=== PATIENT | male | born 1960 | race Caucasian/White ===

== ENCOUNTER 2017-09-25 17:04 | Inpatient (IN) | payer OTHER ==
[~2017-09-25] VITALS: Ht 177.8 cm; Wt 132.4 kg
[2017-09-25] MEDS ORDERED: SODIUM CHLORIDE 0.9% 1,000ML IVBOLUS ONE (17:30)
[2017-09-25] MEDS ORDERED: SODIUM CHLORIDE FLUSH 10ML SYR IVF ONE (17:30)
[2017-09-25] MEDS ORDERED: ALBUTEROL/IPRATROPIUM 2.5MG/0.5MG, 3 ML NEB ONE (18:00)
[2017-09-25] MEDS ORDERED: ALBUTEROL SULFATE 2.5 MG/3 ML NPPB ONE (18:00)
[2017-09-25 18:20] LABS: MEAN CORPUSCULAR HEMOGLOBIN 30.4 pg (27.5-34.5); MEAN CORPUSCULAR HGB CONC 32.2 g/dL (33.2-36.2); MEAN CORPUSCULAR VOLUME 94.4 fL (81-97); MEAN PLATELET VOLUME 8.2 fL (7.4-10.4); PLATELET COUNT 186 x10^3/uL (130-400); RED BLOOD COUNT 5.58 x10^6/uL (4.38-5.82)
[2017-09-25 18:32] LABS: ALBUMIN 2.9 g/dL (3.4-5.0); ANION GAP 4 mmol/L (5-15); CALCIUM 8.1 mg/dL (8.5-10.1); CHLORIDE 104 mmol/L (98-107)
[2017-09-25 18:40] LABS: ALANINE AMINOTRANSFERASE 63 U/L (12-78); ALKALINE PHOSPHATASE 72 U/L (45-117); BILIRUBIN,TOTAL 0.5 mg/dL (0.2-1.0); CREATININE 1.65 mg/dL (0.7-1.3); TOTAL PROTEIN 6.8 g/dL (6.4-8.2)
[2017-09-25 18:44] LABS: MD YES
[2017-09-25 19:04] LABS: EOS% (MANUAL) 1 % (1-7); LYMPH#(MANUAL) 1.94 x10^3/uL (1-3.4); LYMPHS% (MANUAL) 19 % (22-44); MONOS#(MANUAL) 0.92 x10^3/uL (0.3-2.7); MONOS% (MANUAL) 9 % (2-9); REACTIVE LYMPHS % (MANUAL) 2 % (0-0); SEG#(MANUAL) 7.04 x10^3/uL (1.8-6.8); SEGS% (MANUAL) 69 % (42-75)
[2017-09-25 19:06] LABS: POLYCHROMASIA 1+
[2017-09-25 19:08] LABS: <PLATELET ESTIMATE> ADEQUATE; <PLT MORPHOLOGY> NORMAL PLT MORPH
[2017-09-25] MEDS ORDERED: ALBUTEROL/IPRATROPIUM 2.5MG/0.5MG, 3 ML ONE (19:16)
[2017-09-25] MEDS ORDERED: ALBUTEROL SULFATE 2.5 MG/3 ML ONE (19:31)
[2017-09-25 19:38] LABS: RED CELL DISTRIBUTION WIDTH 15.9 % (9.4-14.8)
[2017-09-25] MEDS ORDERED: CEFTRIAXONE PMX 1GM/50ML 50 ML IV ONE (20:30)
[2017-09-25] MEDS ORDERED: CEFTRIAXONE PMX 1GM/50ML 50 ML ONE (20:30)
[2017-09-25] MEDS ORDERED: AZITHROMYCIN 500 MG in SODIUM CHLORIDE 0.9% 250 ML IV ONE (20:30)
[2017-09-25] MEDS ORDERED: ATOR10TA9 PO (20:57)
[2017-09-25] MEDS ORDERED: ZOLP-413 PO (20:57)
[2017-09-25] MEDS ORDERED: ALBU1.25 NEB (20:57)
[2017-09-25] MEDS ORDERED: ASPI-515 PO (20:57)
[2017-09-25] MEDS ORDERED: VALS40TA2 PO (20:57)
[2017-09-25] MEDS ORDERED: ENALAPRILAT 1.25 MG/ML, 2ML IVPush PRN (21:30)
[2017-09-25] MEDS ORDERED: ACETAMINOPHEN 325 MG TABLET PO PRN (21:30)
[2017-09-25] MEDS ORDERED: GUAIFENESIN/DM 200-20MG, 10ML UDC PO PRN (21:30)
[2017-09-25] MEDS ORDERED: DOCUSATE 100 MG CAPSULE PO PRN (21:30)
[2017-09-25 22:03] VITALS: BP 108/67
[2017-09-25] MEDS ORDERED: FUROSEMIDE 20 MG/2 ML IV ONE (22:30)
[2017-09-25] MEDS: GUAIFENESIN ER 600 MG TABLET PO SCH (23:02)
[2017-09-25] MEDS: NICOTINE 21 MG/24 HR PATCH.TD24 TD SCH ×2 (23:02→23:05)
[2017-09-25] MEDS: ENOXAPARIN 40 MG/0.4 ML SQ SCH (23:02)
[2017-09-25] MEDS: ZOLPIDEM 10MG TABLET PO SCH (23:13)
[2017-09-25] MEDS: AZITHROMYCIN 500 MG in SODIUM CHLORIDE 0.9% 250 ML IV SCH (23:40)
[2017-09-26 01:54] VITALS: BP 104/55
[2017-09-26 07:54] VITALS: BP 116/63
[2017-09-26] MEDS: GUAIFENESIN ER 600 MG TABLET PO SCH ×2 (08:40→20:39)
[2017-09-26] MEDS: CEFTRIAXONE PMX 1GM/50ML 50 ML IV SCH ×2 (08:40→20:37)
[2017-09-26] MEDS ORDERED: ASPIRIN 81 MG TABLET EC PO SCH (09:00)
[2017-09-26] MEDS ORDERED: ALBUTEROL/IPRATROPIUM 2.5MG/0.5MG, 3 ML ONE (09:26)
[2017-09-26] MEDS: methylPREDNISolone SOD SUCC 125 MG/2 ML IV SCH ×2 (09:49→18:16)
[2017-09-26] MEDS: ALBUTEROL/IPRATROPIUM 2.5MG/0.5MG, 3 ML NPPB SCH ×3 (09:55→20:15)
[2017-09-26] MEDS ORDERED: ALBUTEROL/IPRATROPIUM 2.5MG/0.5MG, 3 ML NPPB PRN (10:00)
[2017-09-26 14:30] VITALS: BP 114/65
[2017-09-26 19:52] VITALS: BP 110/74
[2017-09-26] MEDS: ZOLPIDEM 10MG TABLET PO SCH (20:39)
[2017-09-26] MEDS: ENOXAPARIN 40 MG/0.4 ML SQ SCH (20:40)
[2017-09-26] MEDS: NICOTINE 21 MG/24 HR PATCH.TD24 TD SCH (20:40)
[2017-09-26] MEDS: AZITHROMYCIN 500 MG in SODIUM CHLORIDE 0.9% 250 ML IV SCH (21:16)
[2017-09-27] MEDS: methylPREDNISolone SOD SUCC 125 MG/2 ML IV SCH (02:15)
[2017-09-27 02:58] VITALS: BP 127/88
[2017-09-27] MEDS ORDERED: NOREPINEPHRINE 1 MG/ML, 4ML ONE (04:23)
[2017-09-27 04:24] LABS: ALANINE AMINOTRANSFERASE 80 U/L (12-78); ALBUMIN 3.2 g/dL (3.4-5.0); ANION GAP 6 mmol/L (5-15); CALCIUM 7.8 mg/dL (8.5-10.1); CHLORIDE 99 mmol/L (98-107); CREATININE 2.48 mg/dL (0.7-1.3)
[2017-09-27 04:26] LABS: ALKALINE PHOSPHATASE 88 U/L (45-117); BILIRUBIN,TOTAL 0.3 mg/dL (0.2-1.0); TOTAL PROTEIN 7.7 g/dL (6.4-8.2)
[2017-09-27] MEDS ORDERED: SODIUM BICARB 8.4%, 50ML SYRINGE ONE (04:29)
[2017-09-27] MEDS ORDERED: CODE BLUE RESPONSE XX ONE (04:29)
[2017-09-27] MEDS ORDERED: SUCCINYLCHOLINE 20 MG/ML, 10ML ONE (04:29)
[2017-09-27] MEDS ORDERED: ETOMIDATE 20 MG/10 ML ONE (04:29)
[2017-09-27] MEDS ORDERED: SODIUM CHLORIDE 0.9% 1,000ML IVBOLUS ONE ×2 (04:30→05:00)
[2017-09-27 04:31] LABS: MEAN CORPUSCULAR HEMOGLOBIN 30.1 pg (27.5-34.5); MEAN CORPUSCULAR HGB CONC 30.7 g/dL (33.2-36.2); MEAN CORPUSCULAR VOLUME 98.3 fL (81-97); MEAN PLATELET VOLUME 8.6 fL (7.4-10.4); PLATELET COUNT 179 x10^3/uL (130-400); RED BLOOD COUNT 5.66 x10^6/uL (4.38-5.82); RED CELL DISTRIBUTION WIDTH 16.4 % (9.4-14.8)
[2017-09-27 04:54] LABS: MD YES
[2017-09-27 04:56] LABS: BAND#(MANUAL) 0.18 x10^3/uL; BANDS%(MANUAL) 1 % (0-7); LYMPH#(MANUAL) 2.12 x10^3/uL (1-3.4); LYMPHS% (MANUAL) 12 % (22-44); MONOS#(MANUAL) 0.53 x10^3/uL (0.3-2.7); MONOS% (MANUAL) 3 % (2-9); REACTIVE LYMPHS # (MANUAL) 0.71 x10^3/uL (0-0); REACTIVE LYMPHS % (MANUAL) 4 % (0-0); SEG#(MANUAL) 14.16 x10^3/uL (1.8-6.8); SEGS% (MANUAL) 80 % (42-75)
[2017-09-27] MEDS: NOREPINEPHRINE 4 MG in SODIUM CHLORIDE 0.9% 246 ML IV PRN ×4 (04:56→15:41)
[2017-09-27 04:57] LABS: <PLATELET ESTIMATE> ADEQUATE; <PLT MORPHOLOGY> NORMAL PLT MORPH; POLYCHROMASIA 1+
[2017-09-27] MEDS ORDERED: PROPOFOL 100 ML IV ONE (04:58)
[2017-09-27] MEDS ORDERED: NOREPINEPHRINE 4 MG in SODIUM CHLORIDE 0.9% 246 ML IV PRN (05:00)
[2017-09-27] MEDS: ALBUTEROL/IPRATROPIUM 2.5MG/0.5MG, 3 ML NPPB SCH ×5 (05:29→20:00)
[2017-09-27] MEDS ORDERED: VECURONIUM 10 MG ONE (06:20)
[2017-09-27] MEDS ORDERED: FENTANYL PF 100 MCG/2ML ONE (06:27)
[2017-09-27] MEDS: ALBUTEROL/IPRATROPIUM 2.5MG/0.5MG, 3 ML INLINE SCH ×5 (06:46→23:00)
[2017-09-27] MEDS ORDERED: FAMOTIDINE 20 MG/2 ML IV SCH (07:00)
[2017-09-27] MEDS ORDERED: FENTANYL PF 100 MCG/2ML IVPush ONE (07:00)
[2017-09-27] MEDS ORDERED: PHARMACY MAY ADJ FOR RENAL FX MC SCH (07:00)
[2017-09-27] MEDS ORDERED: LACTULOSE 20 GM/30 ML UDC NG PRN (07:00)
[2017-09-27] MEDS ORDERED: BISACODYL 10 MG SUPP PR PRN (07:00)
[2017-09-27] MEDS ORDERED: SENNA/DOCUSATE TABLET NG PRN (07:00)
[2017-09-27] MEDS ORDERED: SODIUM CHLORIDE 0.9% 1,000 ML IV SCH (07:00)
[2017-09-27] MEDS ORDERED: LIDOCAINE-MPF 1%, 2ML ENDO PRN (07:00)
[2017-09-27] MEDS ORDERED: AZITHROMYCIN 500 MG in SODIUM CHLORIDE 0.9% 250 ML IV SCH (07:00)
[2017-09-27] MEDS ORDERED: SENNOSIDES 8.8 MG/5 ML ORAL SOL NG PRN (07:00)
[2017-09-27] MEDS: PROPOFOL 100 ML IV PRN ×6 (07:53→23:02)
[2017-09-27] MEDS: METRONIDAZOLE PMX 500MG/100ML 100 ML IV SCH ×3 (08:12→21:15)
[2017-09-27] MEDS: GUAIFENESIN ER 600 MG TABLET PO SCH ×2 (09:00→21:15)
[2017-09-27] MEDS ORDERED: VECURONIUM 10 MG IVPush ONE (09:30)
[2017-09-27] MEDS ORDERED: ASPIRIN 81 MG TABLET CHEW ONE (09:35)
[2017-09-27] MEDS: CEFTRIAXONE PMX 2GM/50ML 50 ML IV SCH (09:38)
[2017-09-27] MEDS: methylPREDNISolone SOD SUCC 40 MG/ML IV SCH ×3 (09:39→19:52)
[2017-09-27] MEDS: ASPIRIN 81 MG TABLET CHEW PO SCH (09:39)
[2017-09-27] MEDS ORDERED: MIDAZOLAM 1 MG/ML, 5ML ONE (11:10)
[2017-09-27] MEDS ORDERED: MIDAZOLAM 1 MG/ML, 5ML IVPush ONE (11:30)
[2017-09-27 13:48] LABS: MICROSCOPIC INDICATED
[2017-09-27 13:50] LABS: CULTURE INDICATED? YES
[2017-09-27] MEDS ORDERED: EPINEPHRINE SYRINGE 0.1 MG/ML, 10ML ONE (14:00)
[2017-09-27] MEDS: ZOLPIDEM 10MG TABLET PO SCH (20:34)
[2017-09-27] MEDS: ENOXAPARIN 40 MG/0.4 ML SQ SCH (21:15)
[2017-09-27] MEDS: FAMOTIDINE 20 MG/2 ML IV SCH (21:15)
[2017-09-27] MEDS: NICOTINE 21 MG/24 HR PATCH.TD24 TD SCH (21:16)
[2017-09-28] MEDS: PROPOFOL 100 ML IV PRN ×5 (01:48→19:43)
[2017-09-28] MEDS: METRONIDAZOLE PMX 500MG/100ML 100 ML IV SCH ×4 (02:24→21:16)
[2017-09-28] MEDS: methylPREDNISolone SOD SUCC 40 MG/ML IV SCH ×4 (02:24→19:46)
[2017-09-28] MEDS: ALBUTEROL/IPRATROPIUM 2.5MG/0.5MG, 3 ML INLINE SCH ×6 (03:00→22:45)
[2017-09-28 04:01] LABS: ALANINE AMINOTRANSFERASE 55 U/L (12-78); ALBUMIN 2.4 g/dL (3.4-5.0); ANION GAP 5 mmol/L (5-15); CALCIUM 7.5 mg/dL (8.5-10.1); CHLORIDE 106 mmol/L (98-107); CREATININE 1.81 mg/dL (0.7-1.3)
[2017-09-28 04:03] LABS: ALKALINE PHOSPHATASE 53 U/L (45-117); BILIRUBIN,TOTAL 0.4 mg/dL (0.2-1.0); TOTAL PROTEIN 5.5 g/dL (6.4-8.2)
[2017-09-28 04:06] LABS: MEAN CORPUSCULAR HEMOGLOBIN 29.8 pg (27.5-34.5); MEAN CORPUSCULAR HGB CONC 32.3 g/dL (33.2-36.2); MEAN CORPUSCULAR VOLUME 92.3 fL (81-97); MEAN PLATELET VOLUME 8.5 fL (7.4-10.4); PLATELET COUNT 160 x10^3/uL (130-400); RED BLOOD COUNT 5.13 x10^6/uL (4.38-5.82); RED CELL DISTRIBUTION WIDTH 15.4 % (9.4-14.8)
[2017-09-28] MEDS: FENTANYL PF 100 MCG/2ML IVPush PRN ×2 (04:20→08:46)
[2017-09-28 04:27] LABS: MD YES
[2017-09-28 04:29] LABS: BAND#(MANUAL) 0.35 x10^3/uL; BANDS%(MANUAL) 2 % (0-7); LYMPH#(MANUAL) 2.12 x10^3/uL (1-3.4); LYMPHS% (MANUAL) 12 % (22-44); MICROCYTOSIS 1+; MONOS#(MANUAL) 1.24 x10^3/uL (0.3-2.7); MONOS% (MANUAL) 7 % (2-9); POLYCHROMASIA 1+; SEG#(MANUAL) 13.98 x10^3/uL (1.8-6.8); SEGS% (MANUAL) 79 % (42-75)
[2017-09-28 04:30] LABS: <PLATELET ESTIMATE> ADEQUATE; <PLT MORPHOLOGY> NORMAL PLT MORPH
[2017-09-28] MEDS: CEFTRIAXONE PMX 2GM/50ML 50 ML IV SCH (06:09)
[2017-09-28] MEDS: ASPIRIN 81 MG TABLET CHEW PO SCH (08:47)
[2017-09-28] MEDS: GUAIFENESIN ER 600 MG TABLET PO SCH (08:55)
[2017-09-28] MEDS: GUAIFENESIN 100 MG/5 ML, 10ML UDC PO SCH ×2 (09:00→22:14)
[2017-09-28 14:49] LABS: TROPONIN I 0.309 ng/mL (0.000-0.045)
[2017-09-28 18:52] LABS: TROPONIN I 0.236 ng/mL (0.000-0.045)
[2017-09-28] MEDS: ZOLPIDEM 10MG TABLET PO SCH (21:00)
[2017-09-28] MEDS: ENOXAPARIN 40 MG/0.4 ML SQ SCH (21:15)
[2017-09-28] MEDS: NICOTINE 21 MG/24 HR PATCH.TD24 TD SCH (21:15)
[2017-09-28] MEDS: FAMOTIDINE 20 MG/2 ML IV SCH (21:16)
[2017-09-29] MEDS: PROPOFOL 100 ML IV PRN ×8 (00:41→23:39)
[2017-09-29] MEDS: methylPREDNISolone SOD SUCC 40 MG/ML IV SCH ×4 (01:45→19:40)
[2017-09-29] MEDS: METRONIDAZOLE PMX 500MG/100ML 100 ML IV SCH ×4 (02:49→20:51)
[2017-09-29] MEDS: ALBUTEROL/IPRATROPIUM 2.5MG/0.5MG, 3 ML INLINE SCH ×6 (03:10→23:00)
[2017-09-29 04:30] LABS: BASOPHILS # (AUTO) 0.05 x10^3/uL (0-0.1); BASOPHILS % (AUTO) 0 % (0-1); EOSINOPHILS % (AUTO) 0 % (1-7); LYMPHOCYTES # (AUTO) 0.52 x10^3/uL (1-3.4); LYMPHOCYTES % (AUTO) 3 % (22-44); MD NO; MEAN CORPUSCULAR HEMOGLOBIN 30.1 pg (27.5-34.5); MEAN CORPUSCULAR HGB CONC 32.6 g/dL (33.2-36.2); MEAN CORPUSCULAR VOLUME 92.4 fL (81-97); MEAN PLATELET VOLUME 8.6 fL (7.4-10.4); MONOCYTES # (AUTO) 0.56 x10^3/uL (0.2-0.8); MONOCYTES % (AUTO) 4 % (2-9); NEUTROPHILS % (AUTO) 93 % (42-75); PLATELET COUNT 153 x10^3/uL (130-400); RED BLOOD COUNT 5.06 x10^6/uL (4.38-5.82)
[2017-09-29 04:41] LABS: ANION GAP 5 mmol/L (5-15); CHLORIDE 107 mmol/L (98-107)
[2017-09-29 04:43] LABS: CALCIUM 7.7 mg/dL (8.5-10.1); CREATININE 1.35 mg/dL (0.7-1.3)
[2017-09-29] MEDS: CEFTRIAXONE PMX 2GM/50ML 50 ML IV SCH (06:14)
[2017-09-29] MEDS: ASPIRIN 81 MG TABLET CHEW PO SCH (08:49)
[2017-09-29] MEDS: FENTANYL PF 100 MCG/2ML IVPush PRN ×2 (08:49→13:48)
[2017-09-29] MEDS: GUAIFENESIN 100 MG/5 ML, 10ML UDC PO SCH ×2 (08:50→20:52)
[2017-09-29] MEDS: ZOLPIDEM 10MG TABLET PO SCH (20:22)
[2017-09-29] MEDS: ENOXAPARIN 40 MG/0.4 ML SQ SCH (20:52)
[2017-09-29] MEDS: FAMOTIDINE 20 MG/2 ML IV SCH (20:52)
[2017-09-29] MEDS: NICOTINE 21 MG/24 HR PATCH.TD24 TD SCH (20:53)
[2017-09-30] MEDS: methylPREDNISolone SOD SUCC 40 MG/ML IV SCH ×4 (02:26→20:53)
[2017-09-30] MEDS: METRONIDAZOLE PMX 500MG/100ML 100 ML IV SCH ×4 (02:26→22:08)
[2017-09-30] MEDS: PROPOFOL 100 ML IV PRN ×8 (02:27→21:55)
[2017-09-30] MEDS: ALBUTEROL/IPRATROPIUM 2.5MG/0.5MG, 3 ML INLINE SCH ×6 (03:00→22:14)
[2017-09-30 04:56] LABS: MEAN CORPUSCULAR HEMOGLOBIN 30.1 pg (27.5-34.5); MEAN CORPUSCULAR HGB CONC 32.7 g/dL (33.2-36.2); MEAN PLATELET VOLUME 8.8 fL (7.4-10.4); PLATELET COUNT 155 x10^3/uL (130-400); RED CELL DISTRIBUTION WIDTH 15.9 % (9.4-14.8)
[2017-09-30 05:05] LABS: ANION GAP 4 mmol/L (5-15); CHLORIDE 107 mmol/L (98-107)
[2017-09-30 05:06] LABS: CREATININE 1.29 mg/dL (0.7-1.3); TRIGLYCERIDES 114 mg/dL (50-200)
[2017-09-30 05:43] LABS: BASOPHILS # (AUTO) 0.01 x10^3/uL (0-0.1); BASOPHILS % (AUTO) 0 % (0-1); EOSINOPHILS % (AUTO) 0 % (1-7); LYMPHOCYTES % (AUTO) 2 % (22-44); MD SCAN; MONOCYTES # (AUTO) 0.42 x10^3/uL (0.2-0.8); MONOCYTES % (AUTO) 3 % (2-9); NEUTROPHILS % (AUTO) 95 % (42-75)
[2017-09-30] MEDS: CEFTRIAXONE PMX 2GM/50ML 50 ML IV SCH (06:12)
[2017-09-30] MEDS: ASPIRIN 81 MG TABLET CHEW PO SCH (07:24)
[2017-09-30] MEDS: GUAIFENESIN 100 MG/5 ML, 10ML UDC PO SCH ×2 (07:24→20:53)
[2017-09-30] MEDS ORDERED: HEPARIN 25,000 UNITS/500ML PMX 500 ML IV PRN (08:30)
[2017-09-30] MEDS ORDERED: HEPARIN 5,000 UNITS/ML, 1ML IV ONE ×2 (08:30→09:00)
[2017-09-30] MEDS ORDERED: HEPARIN 5,000 UNITS/ML, 1ML IV PRN (08:30)
[2017-09-30] MEDS: HEPARIN 25,000 UNITS/500ML PMX 500 ML IV PRN (09:09)
[2017-09-30] MEDS: ZOLPIDEM 10MG TABLET PO SCH (20:37)
[2017-09-30] MEDS: NICOTINE 21 MG/24 HR PATCH.TD24 TD SCH (20:53)
[2017-09-30] MEDS: FAMOTIDINE 20 MG/2 ML IV SCH (20:53)
[2017-10-01] MEDS ORDERED: FUROSEMIDE 20 MG/2 ML IV ONE
[2017-10-01] MEDS: PROPOFOL 100 ML IV PRN ×10 (00:13→23:36)
[2017-10-01] MEDS: methylPREDNISolone SOD SUCC 40 MG/ML IV SCH ×4 (01:23→20:50)
[2017-10-01] MEDS: ALBUTEROL/IPRATROPIUM 2.5MG/0.5MG, 3 ML INLINE SCH ×6 (02:07→22:14)
[2017-10-01] MEDS: METRONIDAZOLE PMX 500MG/100ML 100 ML IV SCH ×4 (02:33→20:53)
[2017-10-01] MEDS: HEPARIN 25,000 UNITS/500ML PMX 500 ML IV PRN (04:14)
[2017-10-01 04:38] LABS: MEAN CORPUSCULAR HEMOGLOBIN 30.2 pg (27.5-34.5); MEAN CORPUSCULAR HGB CONC 32.5 g/dL (33.2-36.2); MEAN CORPUSCULAR VOLUME 92.9 fL (81-97); PLATELET COUNT 150 x10^3/uL (130-400); RED BLOOD COUNT 5.43 x10^6/uL (4.38-5.82); RED CELL DISTRIBUTION WIDTH 15.8 % (9.4-14.8)
[2017-10-01 04:45] LABS: ANION GAP 7 mmol/L (5-15); CALCIUM 7.9 mg/dL (8.5-10.1); CHLORIDE 107 mmol/L (98-107); CREATININE 1.32 mg/dL (0.7-1.3)
[2017-10-01] MEDS ORDERED: FUROSEMIDE 40 MG/4 ML IV ONE ×2 (05:00→17:00)
[2017-10-01 05:44] LABS: BASOPHILS # (AUTO) 0.02 x10^3/uL (0-0.1); BASOPHILS % (AUTO) 0 % (0-1); EOSINOPHILS % (AUTO) 0 % (1-7); LYMPHOCYTES # (AUTO) 0.37 x10^3/uL (1-3.4); LYMPHOCYTES % (AUTO) 2 % (22-44); MD SCAN; MONOCYTES # (AUTO) 0.52 x10^3/uL (0.2-0.8); MONOCYTES % (AUTO) 3 % (2-9); NEUTROPHILS % (AUTO) 95 % (42-75)
[2017-10-01 06:53] LABS: FIO2 100 %
[2017-10-01] MEDS: CEFTRIAXONE PMX 2GM/50ML 50 ML IV SCH (07:35)
[2017-10-01] MEDS: GUAIFENESIN 100 MG/5 ML, 10ML UDC PO SCH ×2 (08:48→20:50)
[2017-10-01] MEDS: FAMOTIDINE 20 MG/2 ML IV SCH ×2 (08:49→20:49)
[2017-10-01] MEDS: ASPIRIN 81 MG TABLET CHEW PO SCH (08:49)
[2017-10-01] MEDS: ZOLPIDEM 10MG TABLET PO SCH (20:50)
[2017-10-01] MEDS: NICOTINE 21 MG/24 HR PATCH.TD24 TD SCH (20:51)
[2017-10-02] MEDS: HEPARIN 25,000 UNITS/500ML PMX 500 ML IV PRN ×2 (00:55→21:31)
[2017-10-02] MEDS: methylPREDNISolone SOD SUCC 40 MG/ML IV SCH ×4 (02:35→20:34)
[2017-10-02] MEDS: METRONIDAZOLE PMX 500MG/100ML 100 ML IV SCH ×4 (02:35→20:57)
[2017-10-02] MEDS: ALBUTEROL/IPRATROPIUM 2.5MG/0.5MG, 3 ML INLINE SCH ×6 (03:21→22:22)
[2017-10-02 04:57] LABS: MEAN CORPUSCULAR HGB CONC 32.4 g/dL (33.2-36.2); MEAN CORPUSCULAR VOLUME 92.7 fL (81-97); MEAN PLATELET VOLUME 9.5 fL (7.4-10.4); PLATELET COUNT 146 x10^3/uL (130-400); RED BLOOD COUNT 5.54 x10^6/uL (4.38-5.82); RED CELL DISTRIBUTION WIDTH 16.1 % (9.4-14.8)
[2017-10-02 05:06] LABS: ANION GAP 7 mmol/L (5-15); CALCIUM 7.8 mg/dL (8.5-10.1); CHLORIDE 106 mmol/L (98-107); CREATININE 1.24 mg/dL (0.7-1.3)
[2017-10-02 05:40] LABS: BASOPHILS % (AUTO) 0 % (0-1); EOSINOPHILS % (AUTO) 0 % (1-7); LYMPHOCYTES # (AUTO) 0.29 x10^3/uL (1-3.4); LYMPHOCYTES % (AUTO) 2 % (22-44); MD SCAN; MONOCYTES # (AUTO) 0.51 x10^3/uL (0.2-0.8); MONOCYTES % (AUTO) 3 % (2-9); NEUTROPHILS # (AUTO) 16.61 x10^3/uL (1.8-6.8); NEUTROPHILS % (AUTO) 95 % (42-75)
[2017-10-02] MEDS: PROPOFOL 100 ML IV PRN ×7 (06:12→21:29)
[2017-10-02] MEDS: FAMOTIDINE 20 MG/2 ML IV SCH ×2 (08:52→20:56)
[2017-10-02] MEDS: CEFTRIAXONE PMX 2GM/50ML 50 ML IV SCH (08:52)
[2017-10-02] MEDS: ASPIRIN 81 MG TABLET CHEW PO SCH (08:52)
[2017-10-02] MEDS: GUAIFENESIN 100 MG/5 ML, 10ML UDC PO SCH ×2 (08:53→20:57)
[2017-10-02] MEDS: FUROSEMIDE 40 MG/4 ML IV SCH ×2 (08:53→20:56)
[2017-10-02] MEDS: ZOLPIDEM 10MG TABLET PO SCH (20:56)
[2017-10-02] MEDS: NICOTINE 21 MG/24 HR PATCH.TD24 TD SCH (21:29)
[2017-10-03] MEDS: PROPOFOL 100 ML IV PRN ×10 (00:06→22:28)
[2017-10-03] MEDS: ALBUTEROL/IPRATROPIUM 2.5MG/0.5MG, 3 ML INLINE SCH ×6 (02:40→22:47)
[2017-10-03] MEDS: methylPREDNISolone SOD SUCC 40 MG/ML IV SCH ×2 (02:58→08:03)
[2017-10-03] MEDS: METRONIDAZOLE PMX 500MG/100ML 100 ML IV SCH ×4 (02:58→21:22)
[2017-10-03] MEDS ORDERED: FUROSEMIDE 40 MG/4 ML IV ONE ×3 (03:00→23:59)
[2017-10-03 05:32] LABS: MEAN CORPUSCULAR HEMOGLOBIN 29.6 pg (27.5-34.5); MEAN CORPUSCULAR VOLUME 92.7 fL (81-97); MEAN PLATELET VOLUME 10.4 fL (7.4-10.4); PLATELET COUNT 122 x10^3/uL (130-400); RED BLOOD COUNT 5.64 x10^6/uL (4.38-5.82)
[2017-10-03 05:35] LABS: ANION GAP 8 mmol/L (5-15); CALCIUM 7.8 mg/dL (8.5-10.1); CHLORIDE 104 mmol/L (98-107)
[2017-10-03 05:37] LABS: CREATININE 1.34 mg/dL (0.7-1.3); TRIGLYCERIDES 103 mg/dL (50-200)
[2017-10-03 06:03] LABS: BASOPHILS % (AUTO) 0 % (0-1); EOSINOPHILS % (AUTO) 0 % (1-7); LYMPHOCYTES # (AUTO) 0.25 x10^3/uL (1-3.4); LYMPHOCYTES % (AUTO) 1 % (22-44); MD SCAN; MONOCYTES % (AUTO) 4 % (2-9); NEUTROPHILS # (AUTO) 19.26 x10^3/uL (1.8-6.8); NEUTROPHILS % (AUTO) 95 % (42-75)
[2017-10-03] MEDS: CEFTRIAXONE PMX 2GM/50ML 50 ML IV SCH (08:03)
[2017-10-03] MEDS: GUAIFENESIN 100 MG/5 ML, 10ML UDC PO SCH ×2 (08:18→21:22)
[2017-10-03] MEDS: FAMOTIDINE 20 MG/2 ML IV SCH ×2 (08:18→21:22)
[2017-10-03] MEDS: ASPIRIN 81 MG TABLET CHEW PO SCH (08:21)
[2017-10-03] MEDS: INSULIN ASPART 100 UNITS/ML, 3ML PEN MEDIUM DOSE SS SQ-INSULIN SCH ×3 (10:35→23:42)
[2017-10-03] MEDS: HEPARIN 25,000 UNITS/500ML PMX 500 ML IV PRN (17:17)
[2017-10-03] MEDS: methylPREDNISolone SOD SUCC 40 MG/ML IVPush SCH ×2 (17:17→23:44)
[2017-10-03] MEDS: ZOLPIDEM 10MG TABLET PO SCH (21:22)
[2017-10-03] MEDS: NICOTINE 21 MG/24 HR PATCH.TD24 TD SCH (21:22)
[2017-10-04] MEDS: ALBUTEROL/IPRATROPIUM 2.5MG/0.5MG, 3 ML INLINE SCH ×6 (02:29→23:00)
[2017-10-04] MEDS: PROPOFOL 100 ML IV PRN ×9 (02:57→23:05)
[2017-10-04] MEDS: METRONIDAZOLE PMX 500MG/100ML 100 ML IV SCH ×4 (02:57→21:47)
[2017-10-04 04:41] LABS: MEAN CORPUSCULAR HEMOGLOBIN 30.1 pg (27.5-34.5); MEAN CORPUSCULAR HGB CONC 32.6 g/dL (33.2-36.2); MEAN CORPUSCULAR VOLUME 92.3 fL (81-97); MEAN PLATELET VOLUME 10.4 fL (7.4-10.4); PLATELET COUNT 101 x10^3/uL (130-400); RED BLOOD COUNT 5.49 x10^6/uL (4.38-5.82); RED CELL DISTRIBUTION WIDTH 15.9 % (9.4-14.8)
[2017-10-04 04:49] LABS: ANION GAP 8 mmol/L (5-15); CALCIUM 7.9 mg/dL (8.5-10.1); CHLORIDE 106 mmol/L (98-107); CREATININE 1.35 mg/dL (0.7-1.3)
[2017-10-04] MEDS: INSULIN ASPART 100 UNITS/ML, 3ML PEN MEDIUM DOSE SS SQ-INSULIN SCH ×4 (05:18→21:47)
[2017-10-04 05:44] LABS: MD YES
[2017-10-04 05:45] LABS: MONOS#(MANUAL) 0.46 x10^3/uL (0.3-2.7); MONOS% (MANUAL) 2 % (2-9); SEG#(MANUAL) 22.54 x10^3/uL (1.8-6.8); SEGS% (MANUAL) 98 % (42-75)
[2017-10-04 05:46] LABS: <PLATELET ESTIMATE> DECREASED; <RBC MORPHOLOGY> NORMAL; LARGE PLATELETS 1+
[2017-10-04] MEDS: CEFTRIAXONE PMX 2GM/50ML 50 ML IV SCH (07:36)
[2017-10-04] MEDS: methylPREDNISolone SOD SUCC 40 MG/ML IVPush SCH ×2 (08:02→17:06)
[2017-10-04] MEDS: GUAIFENESIN 100 MG/5 ML, 10ML UDC PO SCH ×2 (08:03→20:47)
[2017-10-04] MEDS: ASPIRIN 81 MG TABLET CHEW PO SCH (08:03)
[2017-10-04] MEDS: FAMOTIDINE 20 MG/2 ML IV SCH ×2 (08:03→20:45)
[2017-10-04] MEDS: FUROSEMIDE 40 MG/4 ML IV SCH ×2 (08:45→20:44)
[2017-10-04] MEDS: HEPARIN 25,000 UNITS/500ML PMX 500 ML IV PRN (14:49)
[2017-10-04] MEDS: NICOTINE 21 MG/24 HR PATCH.TD24 TD SCH (20:43)
[2017-10-04] MEDS: ZOLPIDEM 10MG TABLET PO SCH (21:00)
[2017-10-05] MEDS: methylPREDNISolone SOD SUCC 40 MG/ML IVPush SCH (00:16)
[2017-10-05] MEDS: METRONIDAZOLE PMX 500MG/100ML 100 ML IV SCH ×4 (02:19→20:44)
[2017-10-05] MEDS: PROPOFOL 100 ML IV PRN ×6 (02:19→21:06)
[2017-10-05] MEDS: ALBUTEROL/IPRATROPIUM 2.5MG/0.5MG, 3 ML INLINE SCH ×6 (02:45→22:50)
[2017-10-05 03:53] LABS: MEAN CORPUSCULAR HEMOGLOBIN 29.9 pg (27.5-34.5); MEAN CORPUSCULAR HGB CONC 32.6 g/dL (33.2-36.2); MEAN CORPUSCULAR VOLUME 91.8 fL (81-97); MEAN PLATELET VOLUME 11.4 fL (7.4-10.4); PLATELET COUNT 108 x10^3/uL (130-400); RED BLOOD COUNT 5.58 x10^6/uL (4.38-5.82); RED CELL DISTRIBUTION WIDTH 16.1 % (9.4-14.8)
[2017-10-05 03:56] LABS: MD YES
[2017-10-05 04:02] LABS: ANION GAP 5 mmol/L (5-15); CALCIUM 8.2 mg/dL (8.5-10.1); CHLORIDE 107 mmol/L (98-107); CREATININE 1.38 mg/dL (0.7-1.3)
[2017-10-05 04:06] LABS: <PLATELET ESTIMATE> DECREASED; <RBC MORPHOLOGY> NORMAL; BAND#(MANUAL) 0.81 x10^3/uL; BANDS%(MANUAL) 3 % (0-7); LARGE PLATELETS 1+; LYMPH#(MANUAL) 0.54 x10^3/uL (1-3.4); LYMPHS% (MANUAL) 2 % (22-44); MONOS#(MANUAL) 0.54 x10^3/uL (0.3-2.7); MONOS% (MANUAL) 2 % (2-9); SEG#(MANUAL) 25.11 x10^3/uL (1.8-6.8); SEGS% (MANUAL) 93 % (42-75)
[2017-10-05] MEDS: INSULIN ASPART 100 UNITS/ML, 3ML PEN MEDIUM DOSE SS SQ-INSULIN SCH ×4 (05:05→20:53)
[2017-10-05] MEDS: CEFTRIAXONE PMX 2GM/50ML 50 ML IV SCH (06:51)
[2017-10-05] MEDS: HEPARIN 5,000 UNITS/ML, 1ML IV PRN (06:51)
[2017-10-05] MEDS: GUAIFENESIN 100 MG/5 ML, 10ML UDC PO SCH ×2 (09:11→20:55)
[2017-10-05] MEDS: FAMOTIDINE 20 MG/2 ML IV SCH ×2 (09:11→20:54)
[2017-10-05] MEDS: ASPIRIN 81 MG TABLET CHEW PO SCH (09:11)
[2017-10-05] MEDS: RISPERIDONE 1 MG/ML ORAL SOLN NG SCH ×2 (09:12→20:55)
[2017-10-05] MEDS: INSULIN DETEMIR 100 UNITS/ML, PEN SQ-INSULIN SCH ×2 (09:14→20:52)
[2017-10-05] MEDS: HEPARIN 25,000 UNITS/500ML PMX 500 ML IV PRN (11:44)
[2017-10-05] MEDS: FUROSEMIDE 40 MG/4 ML IV SCH (17:00)
[2017-10-05] MEDS: NICOTINE 21 MG/24 HR PATCH.TD24 TD SCH (20:54)
[2017-10-05] MEDS: ZOLPIDEM 10MG TABLET PO SCH (20:55)
[2017-10-06] MEDS: FENTANYL PF 100 MCG/2ML IVPush PRN ×2 (00:50→23:33)
[2017-10-06] MEDS: PROPOFOL 100 ML IV PRN ×7 (01:51→22:22)
[2017-10-06] MEDS: ALBUTEROL/IPRATROPIUM 2.5MG/0.5MG, 3 ML INLINE SCH ×6 (03:23→21:59)
[2017-10-06] MEDS: METRONIDAZOLE PMX 500MG/100ML 100 ML IV SCH ×4 (03:43→20:58)
[2017-10-06] MEDS: HEPARIN 25,000 UNITS/500ML PMX 500 ML IV PRN ×2 (03:56→21:39)
[2017-10-06] MEDS: INSULIN ASPART 100 UNITS/ML, 3ML PEN MEDIUM DOSE SS SQ-INSULIN SCH ×4 (04:49→21:02)
[2017-10-06 04:56] LABS: MEAN CORPUSCULAR HEMOGLOBIN 29.9 pg (27.5-34.5); MEAN CORPUSCULAR HGB CONC 32.6 g/dL (33.2-36.2); MEAN CORPUSCULAR VOLUME 91.7 fL (81-97); MEAN PLATELET VOLUME 12.2 fL (7.4-10.4); PLATELET COUNT 123 x10^3/uL (130-400); RED BLOOD COUNT 5.61 x10^6/uL (4.38-5.82); RED CELL DISTRIBUTION WIDTH 16.1 % (9.4-14.8)
[2017-10-06 04:57] LABS: ANION GAP 5 mmol/L (5-15); CALCIUM 8.7 mg/dL (8.5-10.1); CHLORIDE 110 mmol/L (98-107)
[2017-10-06 05:00] LABS: CREATININE 1.19 mg/dL (0.7-1.3); TRIGLYCERIDES 120 mg/dL (50-200)
[2017-10-06] MEDS: HEPARIN 5,000 UNITS/ML, 1ML IV PRN ×2 (05:13→17:54)
[2017-10-06 05:51] LABS: BASOPHILS # (AUTO) 0.07 x10^3/uL (0-0.1); BASOPHILS % (AUTO) 0 % (0-1); EOSINOPHILS # (AUTO) 0.09 x10^3/uL (0-0.4); EOSINOPHILS % (AUTO) 0 % (1-7); LYMPHOCYTES # (AUTO) 1.29 x10^3/uL (1-3.4); LYMPHOCYTES % (AUTO) 7 % (22-44); MD SCAN; MONOCYTES # (AUTO) 1.28 x10^3/uL (0.2-0.8); MONOCYTES % (AUTO) 7 % (2-9); NEUTROPHILS # (AUTO) 17.01 x10^3/uL (1.8-6.8); NEUTROPHILS % (AUTO) 86 % (42-75)
[2017-10-06] MEDS: CEFTRIAXONE PMX 2GM/50ML 50 ML IV SCH (06:43)
[2017-10-06] MEDS: RISPERIDONE 1 MG/ML ORAL SOLN NG SCH ×2 (09:11→20:58)
[2017-10-06] MEDS: FAMOTIDINE 20 MG/2 ML IV SCH ×2 (09:11→20:59)
[2017-10-06] MEDS: GUAIFENESIN 100 MG/5 ML, 10ML UDC PO SCH ×2 (09:11→20:59)
[2017-10-06] MEDS: ASPIRIN 81 MG TABLET CHEW PO SCH (09:11)
[2017-10-06] MEDS: FUROSEMIDE 40 MG/4 ML IV SCH (09:11)
[2017-10-06] MEDS: INSULIN DETEMIR 100 UNITS/ML, PEN SQ-INSULIN SCH ×2 (09:12→21:01)
[2017-10-06] MEDS: NICOTINE 21 MG/24 HR PATCH.TD24 TD SCH (20:59)
[2017-10-06] MEDS: ZOLPIDEM 10MG TABLET PO SCH (21:00)
[2017-10-07] MEDS: PROPOFOL 100 ML IV PRN ×8 (00:56→23:37)
[2017-10-07] MEDS: INSULIN ASPART 100 UNITS/ML, 3ML PEN MEDIUM DOSE SS SQ-INSULIN SCH ×2 (02:08→07:32)
[2017-10-07] MEDS: METRONIDAZOLE PMX 500MG/100ML 100 ML IV SCH (02:09)
[2017-10-07] MEDS: ALBUTEROL/IPRATROPIUM 2.5MG/0.5MG, 3 ML INLINE SCH ×6 (02:45→21:41)
[2017-10-07 03:48] LABS: BASOPHILS # (AUTO) 0.08 x10^3/uL (0-0.1); BASOPHILS % (AUTO) 1 % (0-1); EOSINOPHILS % (AUTO) 2 % (1-7); LYMPHOCYTES # (AUTO) 1.47 x10^3/uL (1-3.4); LYMPHOCYTES % (AUTO) 9 % (22-44); MD NO; MEAN CORPUSCULAR HEMOGLOBIN 30.1 pg (27.5-34.5); MEAN CORPUSCULAR VOLUME 91.2 fL (81-97); MEAN PLATELET VOLUME 11.1 fL (7.4-10.4); MONOCYTES # (AUTO) 0.85 x10^3/uL (0.2-0.8); MONOCYTES % (AUTO) 5 % (2-9); NEUTROPHILS # (AUTO) 13.79 x10^3/uL (1.8-6.8); NEUTROPHILS % (AUTO) 84 % (42-75); PLATELET COUNT 116 x10^3/uL (130-400); RED BLOOD COUNT 5.32 x10^6/uL (4.38-5.82); RED CELL DISTRIBUTION WIDTH 16.3 % (9.4-14.8)
[2017-10-07 03:58] LABS: ANION GAP 4 mmol/L (5-15); CALCIUM 8.7 mg/dL (8.5-10.1); CHLORIDE 110 mmol/L (98-107); CREATININE 1.11 mg/dL (0.7-1.3)
[2017-10-07] MEDS: CEFTRIAXONE PMX 2GM/50ML 50 ML IV SCH (06:07)
[2017-10-07] MEDS: ASPIRIN 81 MG TABLET CHEW PO SCH (07:31)
[2017-10-07] MEDS: FAMOTIDINE 20 MG/2 ML IV SCH ×2 (07:31→20:04)
[2017-10-07] MEDS: RISPERIDONE 1 MG/ML ORAL SOLN NG SCH ×3 (07:31→20:04)
[2017-10-07] MEDS: GUAIFENESIN 100 MG/5 ML, 10ML UDC PO SCH ×2 (07:31→20:04)
[2017-10-07] MEDS: INSULIN DETEMIR 100 UNITS/ML, PEN SQ-INSULIN SCH ×2 (07:32→20:03)
[2017-10-07] MEDS: HEPARIN 25,000 UNITS/500ML PMX 500 ML IV PRN (13:23)
[2017-10-07] MEDS: FUROSEMIDE 40 MG/4 ML IV SCH (14:28)
[2017-10-07] MEDS: INSULIN ASPART 100 UNITS/ML, PEN SQ-INSULIN SCH ×2 (17:00→22:41)
[2017-10-07] MEDS: ZOLPIDEM 10MG TABLET PO SCH (20:16)
[2017-10-07] MEDS: NICOTINE 21 MG/24 HR PATCH.TD24 TD SCH (22:41)
[2017-10-08] MEDS: PROPOFOL 100 ML IV PRN ×9 (00:49→23:55)
[2017-10-08] MEDS: ALBUTEROL/IPRATROPIUM 2.5MG/0.5MG, 3 ML INLINE SCH ×6 (02:53→22:30)
[2017-10-08 04:25] LABS: BASOPHILS # (AUTO) 0.12 x10^3/uL (0-0.1); BASOPHILS % (AUTO) 1 % (0-1); EOSINOPHILS # (AUTO) 0.25 x10^3/uL (0-0.4); EOSINOPHILS % (AUTO) 2 % (1-7); LYMPHOCYTES # (AUTO) 1.84 x10^3/uL (1-3.4); LYMPHOCYTES % (AUTO) 12 % (22-44); MD NO; MEAN CORPUSCULAR HEMOGLOBIN 29.5 pg (27.5-34.5); MEAN CORPUSCULAR HGB CONC 32.2 g/dL (33.2-36.2); MEAN CORPUSCULAR VOLUME 91.7 fL (81-97); MEAN PLATELET VOLUME 10.9 fL (7.4-10.4); MONOCYTES # (AUTO) 0.94 x10^3/uL (0.2-0.8); MONOCYTES % (AUTO) 6 % (2-9); NEUTROPHILS # (AUTO) 12.33 x10^3/uL (1.8-6.8); NEUTROPHILS % (AUTO) 80 % (42-75); PLATELET COUNT 134 x10^3/uL (130-400); RED CELL DISTRIBUTION WIDTH 16.4 % (9.4-14.8)
[2017-10-08 04:32] LABS: ANION GAP 5 mmol/L (5-15); CALCIUM 8.5 mg/dL (8.5-10.1); CHLORIDE 109 mmol/L (98-107); CREATININE 1.09 mg/dL (0.7-1.3)
[2017-10-08] MEDS: INSULIN ASPART 100 UNITS/ML, PEN SQ-INSULIN SCH ×4 (04:39→23:00)
[2017-10-08] MEDS: HEPARIN 5,000 UNITS/ML, 1ML IV PRN (05:37)
[2017-10-08] MEDS: HEPARIN 25,000 UNITS/500ML PMX 500 ML IV PRN ×2 (06:04→19:37)
[2017-10-08] MEDS: ASPIRIN 81 MG TABLET CHEW PO SCH (08:50)
[2017-10-08] MEDS: RISPERIDONE 1 MG/ML ORAL SOLN NG SCH ×2 (08:50→20:11)
[2017-10-08] MEDS: FUROSEMIDE 40 MG/4 ML IV SCH ×2 (08:50→18:05)
[2017-10-08] MEDS: FAMOTIDINE 20 MG/2 ML IV SCH ×2 (08:50→20:11)
[2017-10-08] MEDS: INSULIN DETEMIR 100 UNITS/ML, PEN SQ-INSULIN SCH ×2 (08:51→20:12)
[2017-10-08] MEDS: GUAIFENESIN 100 MG/5 ML, 10ML UDC PO SCH ×2 (08:51→20:11)
[2017-10-08] MEDS: NICOTINE 21 MG/24 HR PATCH.TD24 TD SCH (20:18)
[2017-10-08] MEDS: ZOLPIDEM 10MG TABLET PO SCH (20:19)
[2017-10-08] MEDS ORDERED: HYDROmorphone 1 MG/ML, 1ML IV PRN (21:30)
[2017-10-08] MEDS: FENTANYL PF 100 MCG/2ML IVPush PRN (22:43)
[2017-10-09] MEDS: ALBUTEROL/IPRATROPIUM 2.5MG/0.5MG, 3 ML INLINE SCH ×6 (02:13→23:31)
[2017-10-09] MEDS: PROPOFOL 100 ML IV PRN ×4 (02:34→19:41)
[2017-10-09 04:29] LABS: MEAN CORPUSCULAR HEMOGLOBIN 29.6 pg (27.5-34.5); MEAN CORPUSCULAR HGB CONC 32.6 g/dL (33.2-36.2); MEAN CORPUSCULAR VOLUME 90.7 fL (81-97); MEAN PLATELET VOLUME 10.7 fL (7.4-10.4); PLATELET COUNT 136 x10^3/uL (130-400); RED BLOOD COUNT 5.05 x10^6/uL (4.38-5.82); RED CELL DISTRIBUTION WIDTH 17.2 % (9.4-14.8)
[2017-10-09 04:36] LABS: ANION GAP 6 mmol/L (5-15); CALCIUM 8.2 mg/dL (8.5-10.1); CHLORIDE 107 mmol/L (98-107); CREATININE 0.98 mg/dL (0.7-1.3); TRIGLYCERIDES 144 mg/dL (50-200)
[2017-10-09 04:46] LABS: MD YES
[2017-10-09] MEDS: INSULIN ASPART 100 UNITS/ML, PEN SQ-INSULIN SCH ×4 (04:47→23:00)
[2017-10-09 04:51] LABS: BAND#(MANUAL) 0.33 x10^3/uL; BANDS%(MANUAL) 2 % (0-7); EOS#(MANUAL) 0.16 x10^3/uL (0.0-0.4); EOS% (MANUAL) 1 % (1-7); LYMPHS% (MANUAL) 11 % (22-44); MONOS#(MANUAL) 0.49 x10^3/uL (0.3-2.7); MONOS% (MANUAL) 3 % (2-9); MYELOCYTES# (MANUAL) 0.16 x10^3/uL (0-0); MYELOCYTES% (MANUAL) 1 % (0-0); SEG#(MANUAL) 13.45 x10^3/uL (1.8-6.8); SEGS% (MANUAL) 82 % (42-75)
[2017-10-09 04:54] LABS: ANISOCYTOSIS 1+
[2017-10-09 04:55] LABS: TARGET CELLS 1+
[2017-10-09 04:56] LABS: <PLATELET ESTIMATE> DECREASED; LARGE PLATELETS 1+
[2017-10-09] MEDS: FUROSEMIDE 40 MG/4 ML IV SCH ×2 (07:44→17:05)
[2017-10-09] MEDS ORDERED: MAGNESIUM CITRATE 300ML ORAL SOL PO ONE (09:00)
[2017-10-09] MEDS: ASPIRIN 81 MG TABLET CHEW PO SCH (09:24)
[2017-10-09] MEDS: RISPERIDONE 1 MG/ML ORAL SOLN NG SCH ×2 (09:24→20:47)
[2017-10-09] MEDS: FAMOTIDINE 20 MG/2 ML IV SCH ×2 (09:24→20:45)
[2017-10-09] MEDS: GUAIFENESIN 100 MG/5 ML, 10ML UDC PO SCH ×2 (09:25→20:47)
[2017-10-09] MEDS: INSULIN DETEMIR 100 UNITS/ML, PEN SQ-INSULIN SCH ×2 (09:26→20:47)
[2017-10-09] MEDS: HEPARIN 25,000 UNITS/500ML PMX 500 ML IV PRN (11:35)
[2017-10-09] MEDS: NICOTINE 21 MG/24 HR PATCH.TD24 TD SCH (20:46)
[2017-10-10] MEDS: HEPARIN 25,000 UNITS/500ML PMX 500 ML IV PRN ×2 (00:36→13:14)
[2017-10-10] MEDS: ALBUTEROL/IPRATROPIUM 2.5MG/0.5MG, 3 ML INLINE SCH ×6 (02:41→23:00)
[2017-10-10 04:44] LABS: BASOPHILS # (AUTO) 0.03 x10^3/uL (0-0.1); BASOPHILS % (AUTO) 0 % (0-1); EOSINOPHILS # (AUTO) 0.15 x10^3/uL (0-0.4); EOSINOPHILS % (AUTO) 1 % (1-7); LYMPHOCYTES # (AUTO) 1.66 x10^3/uL (1-3.4); LYMPHOCYTES % (AUTO) 10 % (22-44); MD NO; MEAN CORPUSCULAR HEMOGLOBIN 29.4 pg (27.5-34.5); MEAN CORPUSCULAR HGB CONC 32.4 g/dL (33.2-36.2); MEAN CORPUSCULAR VOLUME 90.7 fL (81-97); MEAN PLATELET VOLUME 10.7 fL (7.4-10.4); MONOCYTES # (AUTO) 0.65 x10^3/uL (0.2-0.8); MONOCYTES % (AUTO) 4 % (2-9); NEUTROPHILS # (AUTO) 13.45 x10^3/uL (1.8-6.8); NEUTROPHILS % (AUTO) 84 % (42-75); PLATELET COUNT 121 x10^3/uL (130-400); RED BLOOD COUNT 4.92 x10^6/uL (4.38-5.82); RED CELL DISTRIBUTION WIDTH 16.1 % (9.4-14.8)
[2017-10-10 04:52] LABS: ANION GAP 4 mmol/L (5-15); CALCIUM 8.1 mg/dL (8.5-10.1); CHLORIDE 106 mmol/L (98-107)
[2017-10-10 04:54] LABS: CREATININE 0.77 mg/dL (0.7-1.3)
[2017-10-10 05:08] LABS: FIO2 40 %
[2017-10-10] MEDS: INSULIN ASPART 100 UNITS/ML, PEN SQ-INSULIN SCH ×4 (05:13→22:35)
[2017-10-10] MEDS: FAMOTIDINE 20 MG/2 ML IV SCH ×2 (10:29→20:03)
[2017-10-10] MEDS: FUROSEMIDE 40 MG/4 ML IV SCH ×2 (10:29→18:38)
[2017-10-10] MEDS: GUAIFENESIN 100 MG/5 ML, 10ML UDC PO SCH ×2 (10:30→20:04)
[2017-10-10] MEDS: RISPERIDONE 1 MG/ML ORAL SOLN NG SCH ×2 (10:30→20:04)
[2017-10-10] MEDS: ASPIRIN 81 MG TABLET CHEW PO SCH (10:30)
[2017-10-10] MEDS: INSULIN DETEMIR 100 UNITS/ML, PEN SQ-INSULIN SCH ×2 (10:35→20:05)
[2017-10-10] MEDS: PROPOFOL 100 ML IV PRN ×4 (10:39→21:07)
[2017-10-10] MEDS ORDERED: OMNIPAQUE 350 MG/ML, 150 ML BOTTLE ONE (16:01)
[2017-10-10] MEDS ORDERED: SODIUM CHLORIDE 0.9% 1,000 ML IV SCH (17:00)
[2017-10-10] MEDS: NICOTINE 21 MG/24 HR PATCH.TD24 TD SCH (20:05)
[2017-10-11] MEDS: PROPOFOL 100 ML IV PRN ×7 (02:01→23:54)
[2017-10-11] MEDS: ALBUTEROL/IPRATROPIUM 2.5MG/0.5MG, 3 ML INLINE SCH ×6 (03:00→23:00)
[2017-10-11 05:00] LABS: ANION GAP 7 mmol/L (5-15); CALCIUM 8.4 mg/dL (8.5-10.1); CHLORIDE 105 mmol/L (98-107); CREATININE 0.71 mg/dL (0.7-1.3)
[2017-10-11] MEDS: INSULIN ASPART 100 UNITS/ML, PEN SQ-INSULIN SCH ×4 (05:00→23:03)
[2017-10-11 05:56] LABS: BASOPHILS # (AUTO) 0.03 x10^3/uL (0-0.1); BASOPHILS % (AUTO) 0 % (0-1); EOSINOPHILS # (AUTO) 0.29 x10^3/uL (0-0.4); EOSINOPHILS % (AUTO) 2 % (1-7); LYMPHOCYTES # (AUTO) 1.17 x10^3/uL (1-3.4); LYMPHOCYTES % (AUTO) 10 % (22-44); MD SCAN; MEAN CORPUSCULAR HEMOGLOBIN 29.9 pg (27.5-34.5); MEAN CORPUSCULAR HGB CONC 32.7 g/dL (33.2-36.2); MEAN CORPUSCULAR VOLUME 91.3 fL (81-97); MEAN PLATELET VOLUME 10.2 fL (7.4-10.4); MONOCYTES % (AUTO) 4 % (2-9); NEUTROPHILS # (AUTO) 9.99 x10^3/uL (1.8-6.8); NEUTROPHILS % (AUTO) 83 % (42-75); PLATELET COUNT 150 x10^3/uL (130-400); RED BLOOD COUNT 4.69 x10^6/uL (4.38-5.82); RED CELL DISTRIBUTION WIDTH 16.4 % (9.4-14.8)
[2017-10-11] MEDS: FAMOTIDINE 20 MG/2 ML IV SCH ×2 (10:02→21:57)
[2017-10-11] MEDS: FUROSEMIDE 40 MG/4 ML IV SCH ×2 (10:02→17:09)
[2017-10-11] MEDS: ENOXAPARIN 40 MG/0.4 ML SQ SCH (10:03)
[2017-10-11] MEDS: RISPERIDONE 1 MG/ML ORAL SOLN NG SCH ×2 (10:03→21:45)
[2017-10-11] MEDS: GUAIFENESIN 100 MG/5 ML, 10ML UDC PO SCH ×2 (10:03→21:45)
[2017-10-11] MEDS: ASPIRIN 81 MG TABLET CHEW PO SCH (10:03)
[2017-10-11] MEDS: INSULIN DETEMIR 100 UNITS/ML, PEN SQ-INSULIN SCH ×2 (10:04→21:50)
[2017-10-11] MEDS: NICOTINE 21 MG/24 HR PATCH.TD24 TD SCH (21:46)
[2017-10-12] MEDS: PROPOFOL 100 ML IV PRN ×6 (01:50→21:43)
[2017-10-12] MEDS: ALBUTEROL/IPRATROPIUM 2.5MG/0.5MG, 3 ML INLINE SCH ×6 (03:00→23:35)
[2017-10-12 03:29] LABS: BASOPHILS # (AUTO) 0.02 x10^3/uL (0-0.1); BASOPHILS % (AUTO) 0 % (0-1); EOSINOPHILS # (AUTO) 0.27 x10^3/uL (0-0.4); EOSINOPHILS % (AUTO) 2 % (1-7); LYMPHOCYTES # (AUTO) 1.03 x10^3/uL (1-3.4); LYMPHOCYTES % (AUTO) 9 % (22-44); MD NO; MEAN CORPUSCULAR HGB CONC 33.1 g/dL (33.2-36.2); MEAN CORPUSCULAR VOLUME 90.7 fL (81-97); MEAN PLATELET VOLUME 9.2 fL (7.4-10.4); MONOCYTES # (AUTO) 0.42 x10^3/uL (0.2-0.8); MONOCYTES % (AUTO) 4 % (2-9); NEUTROPHILS # (AUTO) 9.59 x10^3/uL (1.8-6.8); NEUTROPHILS % (AUTO) 85 % (42-75); PLATELET COUNT 134 x10^3/uL (130-400); RED BLOOD COUNT 4.64 x10^6/uL (4.38-5.82); RED CELL DISTRIBUTION WIDTH 16.6 % (9.4-14.8)
[2017-10-12 03:41] LABS: ANION GAP 7 mmol/L (5-15); CALCIUM 8.6 mg/dL (8.5-10.1); CHLORIDE 103 mmol/L (98-107); CREATININE 0.69 mg/dL (0.7-1.3); TRIGLYCERIDES 170 mg/dL (50-200)
[2017-10-12] MEDS: INSULIN ASPART 100 UNITS/ML, PEN SQ-INSULIN SCH ×4 (04:43→23:31)
[2017-10-12] MEDS: RISPERIDONE 1 MG/ML ORAL SOLN NG SCH ×2 (08:51→20:57)
[2017-10-12] MEDS: FAMOTIDINE 20 MG/2 ML IV SCH ×2 (08:52→20:56)
[2017-10-12] MEDS: ASPIRIN 81 MG TABLET CHEW PO SCH (08:52)
[2017-10-12] MEDS: GUAIFENESIN 100 MG/5 ML, 10ML UDC PO SCH ×2 (08:52→20:57)
[2017-10-12] MEDS: FUROSEMIDE 40 MG/4 ML IV SCH ×2 (08:52→17:17)
[2017-10-12] MEDS: ENOXAPARIN 40 MG/0.4 ML SQ SCH (08:52)
[2017-10-12] MEDS: INSULIN DETEMIR 100 UNITS/ML, PEN SQ-INSULIN SCH ×2 (08:55→21:03)
[2017-10-12] MEDS: NICOTINE 21 MG/24 HR PATCH.TD24 TD SCH (20:57)
[2017-10-13] MEDS: PROPOFOL 100 ML IV PRN ×2 (01:14→04:59)
[2017-10-13] MEDS: ALBUTEROL/IPRATROPIUM 2.5MG/0.5MG, 3 ML INLINE SCH ×6 (03:12→23:50)
[2017-10-13 03:23] LABS: BASOPHILS # (AUTO) 0.04 x10^3/uL (0-0.1); BASOPHILS % (AUTO) 0 % (0-1); EOSINOPHILS # (AUTO) 0.24 x10^3/uL (0-0.4); EOSINOPHILS % (AUTO) 2 % (1-7); LYMPHOCYTES # (AUTO) 1.05 x10^3/uL (1-3.4); LYMPHOCYTES % (AUTO) 10 % (22-44); MD NO; MEAN CORPUSCULAR HEMOGLOBIN 29.4 pg (27.5-34.5); MEAN CORPUSCULAR HGB CONC 32.7 g/dL (33.2-36.2); MEAN CORPUSCULAR VOLUME 89.8 fL (81-97); MEAN PLATELET VOLUME 9.3 fL (7.4-10.4); MONOCYTES # (AUTO) 0.53 x10^3/uL (0.2-0.8); MONOCYTES % (AUTO) 5 % (2-9); NEUTROPHILS # (AUTO) 8.87 x10^3/uL (1.8-6.8); NEUTROPHILS % (AUTO) 83 % (42-75); PLATELET COUNT 158 x10^3/uL (130-400); RED BLOOD COUNT 4.79 x10^6/uL (4.38-5.82); RED CELL DISTRIBUTION WIDTH 16.2 % (9.4-14.8)
[2017-10-13 03:35] LABS: ANION GAP 7 mmol/L (5-15); CALCIUM 8.7 mg/dL (8.5-10.1); CHLORIDE 104 mmol/L (98-107)
[2017-10-13 03:36] LABS: CREATININE 0.75 mg/dL (0.7-1.3)
[2017-10-13] MEDS: INSULIN ASPART 100 UNITS/ML, PEN SQ-INSULIN SCH ×4 (05:00→22:53)
[2017-10-13] MEDS: FUROSEMIDE 40 MG/4 ML IV SCH ×2 (08:06→17:00)
[2017-10-13] MEDS: ENOXAPARIN 40 MG/0.4 ML SQ SCH (08:07)
[2017-10-13] MEDS: INSULIN DETEMIR 100 UNITS/ML, PEN SQ-INSULIN SCH ×2 (08:59→21:01)
[2017-10-13] MEDS: RISPERIDONE 1 MG/ML ORAL SOLN NG SCH ×2 (09:00→21:00)
[2017-10-13] MEDS: GUAIFENESIN 100 MG/5 ML, 10ML UDC PO SCH ×2 (09:00→21:00)
[2017-10-13] MEDS: ASPIRIN 81 MG TABLET CHEW PO SCH (09:00)
[2017-10-13] MEDS: FAMOTIDINE 20 MG/2 ML IV SCH ×2 (09:00→21:00)
[2017-10-13] MEDS: DEXAMETHASONE 4 MG/ML, 1ML IV SCH ×2 (12:40→18:08)
[2017-10-13] MEDS: ENOXAPARIN 30 MG/0.3 ML SQ SCH (21:00)
[2017-10-13] MEDS: NICOTINE 21 MG/24 HR PATCH.TD24 TD SCH (21:00)
[2017-10-14] MEDS: DEXAMETHASONE 4 MG/ML, 1ML IV SCH ×4 (00:04→17:14)
[2017-10-14] MEDS: FENTANYL PF 100 MCG/2ML IVPush PRN (02:08)
[2017-10-14] MEDS: ALBUTEROL/IPRATROPIUM 2.5MG/0.5MG, 3 ML INLINE SCH ×6 (03:00→22:30)
[2017-10-14] MEDS: INSULIN ASPART 100 UNITS/ML, PEN SQ-INSULIN SCH ×3 (05:42→17:14)
[2017-10-14 06:36] LABS: ANION GAP 6 mmol/L (5-15); CALCIUM 8.9 mg/dL (8.5-10.1); CHLORIDE 107 mmol/L (98-107); CREATININE 0.88 mg/dL (0.7-1.3)
[2017-10-14 06:47] LABS: BASOPHILS % (AUTO) 0 % (0-1); EOSINOPHILS % (AUTO) 0 % (1-7); LYMPHOCYTES # (AUTO) 0.65 x10^3/uL (1-3.4); LYMPHOCYTES % (AUTO) 5 % (22-44); MD NO; MEAN CORPUSCULAR HEMOGLOBIN 29.4 pg (27.5-34.5); MEAN CORPUSCULAR HGB CONC 32.6 g/dL (33.2-36.2); MEAN CORPUSCULAR VOLUME 90.3 fL (81-97); MEAN PLATELET VOLUME 9.1 fL (7.4-10.4); MONOCYTES # (AUTO) 0.25 x10^3/uL (0.2-0.8); MONOCYTES % (AUTO) 2 % (2-9); NEUTROPHILS # (AUTO) 11.02 x10^3/uL (1.8-6.8); NEUTROPHILS % (AUTO) 93 % (42-75); PLATELET COUNT 168 x10^3/uL (130-400); RED CELL DISTRIBUTION WIDTH 16.5 % (9.4-14.8)
[2017-10-14] MEDS: ASPIRIN 81 MG TABLET CHEW PO SCH (08:17)
[2017-10-14] MEDS: ENOXAPARIN 30 MG/0.3 ML SQ SCH ×2 (08:18→21:55)
[2017-10-14] MEDS: FAMOTIDINE 20 MG/2 ML IV SCH ×2 (08:18→21:54)
[2017-10-14] MEDS: RISPERIDONE 1 MG/ML ORAL SOLN NG SCH ×2 (08:18→21:54)
[2017-10-14] MEDS: FUROSEMIDE 40 MG/4 ML IV SCH ×2 (08:18→17:14)
[2017-10-14] MEDS: GUAIFENESIN 100 MG/5 ML, 10ML UDC PO SCH ×2 (08:18→21:54)
[2017-10-14] MEDS: INSULIN DETEMIR 100 UNITS/ML, PEN SQ-INSULIN SCH ×2 (08:19→21:55)
[2017-10-14] MEDS: NICOTINE 21 MG/24 HR PATCH.TD24 TD SCH (21:55)
[2017-10-15] MEDS: DEXAMETHASONE 4 MG/ML, 1ML IV SCH ×2 (00:38→05:30)
[2017-10-15] MEDS: INSULIN ASPART 100 UNITS/ML, PEN SQ-INSULIN SCH ×5 (00:38→22:03)
[2017-10-15] MEDS: ALBUTEROL/IPRATROPIUM 2.5MG/0.5MG, 3 ML INLINE SCH ×2 (03:03→07:23)
[2017-10-15 04:52] LABS: BASOPHILS # (AUTO) 0.01 x10^3/uL (0-0.1); BASOPHILS % (AUTO) 0 % (0-1); EOSINOPHILS % (AUTO) 0 % (1-7); LYMPHOCYTES # (AUTO) 0.58 x10^3/uL (1-3.4); LYMPHOCYTES % (AUTO) 5 % (22-44); MD NO; MEAN CORPUSCULAR HEMOGLOBIN 29.4 pg (27.5-34.5); MEAN CORPUSCULAR HGB CONC 32.7 g/dL (33.2-36.2); MEAN CORPUSCULAR VOLUME 89.9 fL (81-97); MEAN PLATELET VOLUME 8.9 fL (7.4-10.4); MONOCYTES # (AUTO) 0.36 x10^3/uL (0.2-0.8); MONOCYTES % (AUTO) 3 % (2-9); NEUTROPHILS # (AUTO) 11.86 x10^3/uL (1.8-6.8); NEUTROPHILS % (AUTO) 93 % (42-75); PLATELET COUNT 205 x10^3/uL (130-400); RED BLOOD COUNT 5.09 x10^6/uL (4.38-5.82); RED CELL DISTRIBUTION WIDTH 16.6 % (9.4-14.8)
[2017-10-15 05:00] LABS: CHLORIDE 108 mmol/L (98-107)
[2017-10-15 05:07] LABS: ANION GAP 7 mmol/L (5-15); CALCIUM 9.3 mg/dL (8.5-10.1); CREATININE 0.84 mg/dL (0.7-1.3); TRIGLYCERIDES 105 mg/dL (50-200)
[2017-10-15] MEDS: FAMOTIDINE 20 MG/2 ML IV SCH (07:38)
[2017-10-15] MEDS: ASPIRIN 81 MG TABLET CHEW PO SCH (07:38)
[2017-10-15] MEDS: RISPERIDONE 1 MG/ML ORAL SOLN NG SCH (07:39)
[2017-10-15] MEDS: FUROSEMIDE 40 MG/4 ML IV SCH ×2 (07:39→16:40)
[2017-10-15] MEDS: GUAIFENESIN 100 MG/5 ML, 10ML UDC PO SCH ×2 (07:39→22:10)
[2017-10-15] MEDS: ENOXAPARIN 30 MG/0.3 ML SQ SCH ×2 (07:39→22:09)
[2017-10-15] MEDS: INSULIN DETEMIR 100 UNITS/ML, PEN SQ-INSULIN SCH ×2 (07:40→22:09)
[2017-10-15] MEDS ORDERED: RACEPINEPHRINE INH 2.25%, 0.5ML ONE (09:30)
[2017-10-15] MEDS ORDERED: ALBUTEROL/IPRATROPIUM 2.5MG/0.5MG, 3 ML NPPB PRN (10:30)
[2017-10-15] MEDS: ALBUTEROL/IPRATROPIUM 2.5MG/0.5MG, 3 ML NPPB SCH ×4 (10:57→23:00)
[2017-10-15] MEDS: NICOTINE 21 MG/24 HR PATCH.TD24 TD SCH (22:09)
[2017-10-16] MEDS: ALBUTEROL/IPRATROPIUM 2.5MG/0.5MG, 3 ML NPPB SCH ×2 (03:00→07:00)
[2017-10-16 04:42] LABS: BASOPHILS # (AUTO) 0.01 x10^3/uL (0-0.1); BASOPHILS % (AUTO) 0 % (0-1); EOSINOPHILS # (AUTO) 0.02 x10^3/uL (0-0.4); EOSINOPHILS % (AUTO) 0 % (1-7); LYMPHOCYTES % (AUTO) 13 % (22-44); MD NO; MEAN CORPUSCULAR HEMOGLOBIN 29.3 pg (27.5-34.5); MEAN CORPUSCULAR HGB CONC 32.4 g/dL (33.2-36.2); MEAN CORPUSCULAR VOLUME 90.5 fL (81-97); MEAN PLATELET VOLUME 8.5 fL (7.4-10.4); MONOCYTES # (AUTO) 0.57 x10^3/uL (0.2-0.8); MONOCYTES % (AUTO) 6 % (2-9); NEUTROPHILS # (AUTO) 7.73 x10^3/uL (1.8-6.8); NEUTROPHILS % (AUTO) 81 % (42-75); PLATELET COUNT 249 x10^3/uL (130-400); RED BLOOD COUNT 5.52 x10^6/uL (4.38-5.82); RED CELL DISTRIBUTION WIDTH 16.5 % (9.4-14.8)
[2017-10-16 04:53] LABS: ANION GAP 7 mmol/L (5-15); CHLORIDE 110 mmol/L (98-107)
[2017-10-16 04:56] LABS: CALCIUM 9.5 mg/dL (8.5-10.1)
[2017-10-16] MEDS: INSULIN ASPART 100 UNITS/ML, PEN SQ-INSULIN SCH ×4 (05:00→21:37)
[2017-10-16] MEDS: ENOXAPARIN 30 MG/0.3 ML SQ SCH ×2 (11:07→21:36)
[2017-10-16] MEDS: GUAIFENESIN 100 MG/5 ML, 10ML UDC PO SCH ×2 (11:07→21:36)
[2017-10-16] MEDS: INSULIN DETEMIR 100 UNITS/ML, PEN SQ-INSULIN SCH ×2 (11:10→21:39)
[2017-10-16] MEDS: ASPIRIN 81 MG TABLET CHEW PO SCH (11:11)
[2017-10-16] MEDS: NICOTINE 21 MG/24 HR PATCH.TD24 TD SCH (21:36)
[2017-10-17] MEDS: INSULIN ASPART 100 UNITS/ML, PEN SQ-INSULIN SCH ×4 (05:10→21:43)
[2017-10-17 05:45] LABS: BASOPHILS # (AUTO) 0.02 x10^3/uL (0-0.1); BASOPHILS % (AUTO) 0 % (0-1); EOSINOPHILS # (AUTO) 0.08 x10^3/uL (0-0.4); EOSINOPHILS % (AUTO) 1 % (1-7); LYMPHOCYTES # (AUTO) 1.14 x10^3/uL (1-3.4); LYMPHOCYTES % (AUTO) 13 % (22-44); MD NO; MEAN CORPUSCULAR HEMOGLOBIN 29.5 pg (27.5-34.5); MEAN CORPUSCULAR HGB CONC 32.4 g/dL (33.2-36.2); MEAN CORPUSCULAR VOLUME 91.1 fL (81-97); MEAN PLATELET VOLUME 8.3 fL (7.4-10.4); MONOCYTES # (AUTO) 0.47 x10^3/uL (0.2-0.8); MONOCYTES % (AUTO) 5 % (2-9); NEUTROPHILS # (AUTO) 7.14 x10^3/uL (1.8-6.8); NEUTROPHILS % (AUTO) 81 % (42-75); PLATELET COUNT 251 x10^3/uL (130-400); RED BLOOD COUNT 5.61 x10^6/uL (4.38-5.82); RED CELL DISTRIBUTION WIDTH 16.8 % (9.4-14.8)
[2017-10-17 05:52] LABS: ANION GAP 8 mmol/L (5-15); CALCIUM 9.7 mg/dL (8.5-10.1); CHLORIDE 116 mmol/L (98-107)
[2017-10-17 05:53] LABS: CREATININE 1.01 mg/dL (0.7-1.3)
[2017-10-17] MEDS: ASPIRIN 81 MG TABLET CHEW PO SCH (11:31)
[2017-10-17] MEDS: ENOXAPARIN 30 MG/0.3 ML SQ SCH ×2 (11:31→21:59)
[2017-10-17] MEDS: GUAIFENESIN 100 MG/5 ML, 10ML UDC PO SCH ×2 (11:31→21:58)
[2017-10-17] MEDS: INSULIN DETEMIR 100 UNITS/ML, PEN SQ-INSULIN SCH ×2 (11:32→21:59)
[2017-10-17 12:16] LABS: ANION GAP 6 mmol/L (5-15); CALCIUM 9.6 mg/dL (8.5-10.1); CHLORIDE 113 mmol/L (98-107); CREATININE 1.23 mg/dL (0.7-1.3)
[2017-10-17] MEDS: NICOTINE 21 MG/24 HR PATCH.TD24 TD SCH (21:59)
[2017-10-18] VITALS (9 sets, daily range): BP systolic 96–131; BP diastolic 73–91
[2017-10-18 05:13] LABS: BASOPHILS # (AUTO) 0.04 x10^3/uL (0-0.1); BASOPHILS % (AUTO) 1 % (0-1); EOSINOPHILS # (AUTO) 0.14 x10^3/uL (0-0.4); EOSINOPHILS % (AUTO) 2 % (1-7); LYMPHOCYTES # (AUTO) 1.26 x10^3/uL (1-3.4); LYMPHOCYTES % (AUTO) 17 % (22-44); MD NO; MEAN CORPUSCULAR HEMOGLOBIN 29.5 pg (27.5-34.5); MEAN CORPUSCULAR HGB CONC 32.1 g/dL (33.2-36.2); MEAN PLATELET VOLUME 8.3 fL (7.4-10.4); MONOCYTES # (AUTO) 0.47 x10^3/uL (0.2-0.8); MONOCYTES % (AUTO) 7 % (2-9); NEUTROPHILS # (AUTO) 5.41 x10^3/uL (1.8-6.8); NEUTROPHILS % (AUTO) 74 % (42-75); PLATELET COUNT 256 x10^3/uL (130-400); RED BLOOD COUNT 5.66 x10^6/uL (4.38-5.82); RED CELL DISTRIBUTION WIDTH 17.1 % (9.4-14.8)
[2017-10-18 05:24] LABS: ANION GAP 3 mmol/L (5-15); CALCIUM 9.1 mg/dL (8.5-10.1); CHLORIDE 117 mmol/L (98-107); CREATININE 1.15 mg/dL (0.7-1.3); TRIGLYCERIDES 146 mg/dL (50-200)
[2017-10-18] MEDS: INSULIN ASPART 100 UNITS/ML, PEN SQ-INSULIN SCH ×4 (07:00→21:02)
[2017-10-18] MEDS ORDERED: REGADENOSON 0.4 MG/5 ML SYRINGE ONE (09:21)
[2017-10-18] MEDS: INSULIN DETEMIR 100 UNITS/ML, PEN SQ-INSULIN SCH ×2 (11:20→21:01)
[2017-10-18] MEDS: ENOXAPARIN 30 MG/0.3 ML SQ SCH (11:20)
[2017-10-18] MEDS: GUAIFENESIN 100 MG/5 ML, 10ML UDC PO SCH ×2 (11:20→21:00)
[2017-10-18] MEDS: ASPIRIN 81 MG TABLET CHEW PO SCH (11:20)
[2017-10-18] MEDS ORDERED: SODIUM CHLORIDE 0.9% 1,000ML IVBOLUS ONE (13:00)
[2017-10-18 13:45] LABS: INTERNATIONAL NORMALIZED RATIO 1.11 (0.93-1.1); PROTHROMBIN TIME 11.4 Seconds (9.6-11.5)
[2017-10-18] MEDS: NICOTINE 21 MG/24 HR PATCH.TD24 TD SCH (21:02)
[2017-10-19 01:47] VITALS: BP 105/68
[2017-10-19 05:35] LABS: BASOPHILS # (AUTO) 0.01 x10^3/uL (0-0.1); BASOPHILS % (AUTO) 0 % (0-1); EOSINOPHILS # (AUTO) 0.32 x10^3/uL (0-0.4); EOSINOPHILS % (AUTO) 5 % (1-7); LYMPHOCYTES # (AUTO) 1.41 x10^3/uL (1-3.4); LYMPHOCYTES % (AUTO) 21 % (22-44); MD NO; MEAN CORPUSCULAR HEMOGLOBIN 29.4 pg (27.5-34.5); MEAN CORPUSCULAR VOLUME 91.6 fL (81-97); MEAN PLATELET VOLUME 8.2 fL (7.4-10.4); MONOCYTES # (AUTO) 0.43 x10^3/uL (0.2-0.8); MONOCYTES % (AUTO) 6 % (2-9); NEUTROPHILS # (AUTO) 4.63 x10^3/uL (1.8-6.8); NEUTROPHILS % (AUTO) 68 % (42-75); PLATELET COUNT 248 x10^3/uL (130-400); RED CELL DISTRIBUTION WIDTH 16.9 % (9.4-14.8)
[2017-10-19 05:46] LABS: ANION GAP 5 mmol/L (5-15); CALCIUM 8.8 mg/dL (8.5-10.1); CHLORIDE 116 mmol/L (98-107)
[2017-10-19 05:47] LABS: CREATININE 0.98 mg/dL (0.7-1.3)
[2017-10-19] MEDS: INSULIN ASPART 100 UNITS/ML, PEN SQ-INSULIN SCH ×4 (07:00→21:49)
[2017-10-19 07:43] VITALS: BP 115/80
[2017-10-19] MEDS: GUAIFENESIN 100 MG/5 ML, 10ML UDC PO SCH ×2 (08:31→21:48)
[2017-10-19] MEDS: INSULIN DETEMIR 100 UNITS/ML, PEN SQ-INSULIN SCH ×2 (08:31→21:49)
[2017-10-19 12:34] VITALS: BP 115/77
[2017-10-19] MEDS: NICOTINE 21 MG/24 HR PATCH.TD24 TD SCH (21:30)
[2017-10-19 21:45] VITALS: BP 104/69
[2017-10-20 01:29] VITALS: BP 96/64
[2017-10-20 05:31] LABS: BASOPHILS # (AUTO) 0.02 x10^3/uL (0-0.1); BASOPHILS % (AUTO) 0 % (0-1); EOSINOPHILS # (AUTO) 0.41 x10^3/uL (0-0.4); EOSINOPHILS % (AUTO) 6 % (1-7); LYMPHOCYTES # (AUTO) 2.12 x10^3/uL (1-3.4); LYMPHOCYTES % (AUTO) 29 % (22-44); MD NO; MEAN CORPUSCULAR HEMOGLOBIN 29.5 pg (27.5-34.5); MEAN CORPUSCULAR HGB CONC 32.4 g/dL (33.2-36.2); MEAN CORPUSCULAR VOLUME 91.1 fL (81-97); MEAN PLATELET VOLUME 8.1 fL (7.4-10.4); MONOCYTES # (AUTO) 0.56 x10^3/uL (0.2-0.8); MONOCYTES % (AUTO) 8 % (2-9); NEUTROPHILS # (AUTO) 4.13 x10^3/uL (1.8-6.8); NEUTROPHILS % (AUTO) 57 % (42-75); PLATELET COUNT 254 x10^3/uL (130-400); RED BLOOD COUNT 4.87 x10^6/uL (4.38-5.82); RED CELL DISTRIBUTION WIDTH 16.7 % (9.4-14.8)
[2017-10-20 05:38] LABS: INTERNATIONAL NORMALIZED RATIO 1.06 (0.93-1.1)
[2017-10-20 05:44] LABS: CHLORIDE 112 mmol/L (98-107)
[2017-10-20 05:56] LABS: ANION GAP 5 mmol/L (5-15); CALCIUM 8.9 mg/dL (8.5-10.1); CREATININE 0.68 mg/dL (0.7-1.3)
[2017-10-20 07:30] VITALS: BP 115/77
[2017-10-20] MEDS: INSULIN ASPART 100 UNITS/ML, PEN SQ-INSULIN SCH ×4 (08:38→21:00)
[2017-10-20] MEDS: INSULIN DETEMIR 100 UNITS/ML, PEN SQ-INSULIN SCH ×2 (08:39→21:22)
[2017-10-20] MEDS: GUAIFENESIN 100 MG/5 ML, 10ML UDC PO SCH ×2 (08:39→21:21)
[2017-10-20 12:45] VITALS: BP 112/77
[2017-10-20] MEDS ORDERED: ENOXAPARIN 30 MG/0.3 ML SQ SCH (14:00)
[2017-10-20] MEDS: ASPIRIN 81 MG TABLET CHEW PO SCH (14:00)
[2017-10-20] MEDS: ENOXAPARIN 30 MG/0.3 ML SQ SCH (14:21)
[2017-10-20 18:34] VITALS: BP 106/67
[2017-10-20] MEDS: NICOTINE 21 MG/24 HR PATCH.TD24 TD SCH ×2 (21:11→21:38)
[2017-10-21] MEDS: ENOXAPARIN 30 MG/0.3 ML SQ SCH ×2 (00:48→15:08)
[2017-10-21 01:53] VITALS: BP 94/67
[2017-10-21 05:10] LABS: BASOPHILS # (AUTO) 0.06 x10^3/uL (0-0.1); BASOPHILS % (AUTO) 1 % (0-1); EOSINOPHILS # (AUTO) 0.35 x10^3/uL (0-0.4); EOSINOPHILS % (AUTO) 5 % (1-7); LYMPHOCYTES # (AUTO) 1.98 x10^3/uL (1-3.4); LYMPHOCYTES % (AUTO) 31 % (22-44); MD NO; MEAN CORPUSCULAR HEMOGLOBIN 29.4 pg (27.5-34.5); MEAN CORPUSCULAR HGB CONC 31.9 g/dL (33.2-36.2); MEAN CORPUSCULAR VOLUME 92.2 fL (81-97); MEAN PLATELET VOLUME 8.5 fL (7.4-10.4); MONOCYTES # (AUTO) 0.54 x10^3/uL (0.2-0.8); MONOCYTES % (AUTO) 8 % (2-9); NEUTROPHILS # (AUTO) 3.57 x10^3/uL (1.8-6.8); NEUTROPHILS % (AUTO) 55 % (42-75); PLATELET COUNT 235 x10^3/uL (130-400); RED BLOOD COUNT 4.61 x10^6/uL (4.38-5.82); RED CELL DISTRIBUTION WIDTH 16.5 % (9.4-14.8)
[2017-10-21 05:22] LABS: CHLORIDE 108 mmol/L (98-107)
[2017-10-21 05:33] LABS: ANION GAP 5 mmol/L (5-15); CALCIUM 8.5 mg/dL (8.5-10.1); CREATININE 0.65 mg/dL (0.7-1.3); TRIGLYCERIDES 134 mg/dL (50-200)
[2017-10-21] MEDS: INSULIN ASPART 100 UNITS/ML, PEN SQ-INSULIN SCH ×4 (07:00→21:00)
[2017-10-21] MEDS: INSULIN DETEMIR 100 UNITS/ML, PEN SQ-INSULIN SCH ×2 (08:07→21:16)
[2017-10-21] MEDS: GUAIFENESIN 100 MG/5 ML, 10ML UDC PO SCH ×2 (08:07→21:16)
[2017-10-21] MEDS: ASPIRIN 81 MG TABLET CHEW PO SCH (08:07)
[2017-10-21 08:48] VITALS: BP 103/69
[2017-10-21 13:52] VITALS: BP 105/74
[2017-10-21 20:32] VITALS: BP 106/68
[2017-10-21] MEDS: NICOTINE 21 MG/24 HR PATCH.TD24 TD SCH (21:16)
[2017-10-22 03:05] VITALS: BP 107/70
[2017-10-22] MEDS: ENOXAPARIN 30 MG/0.3 ML SQ SCH ×2 (03:08→14:33)
[2017-10-22 05:50] LABS: BASOPHILS # (AUTO) 0.06 x10^3/uL (0-0.1); BASOPHILS % (AUTO) 1 % (0-1); EOSINOPHILS # (AUTO) 0.37 x10^3/uL (0-0.4); EOSINOPHILS % (AUTO) 6 % (1-7); LYMPHOCYTES # (AUTO) 2.54 x10^3/uL (1-3.4); LYMPHOCYTES % (AUTO) 38 % (22-44); MD NO; MEAN CORPUSCULAR HGB CONC 32.2 g/dL (33.2-36.2); MEAN PLATELET VOLUME 8.4 fL (7.4-10.4); MONOCYTES # (AUTO) 0.63 x10^3/uL (0.2-0.8); MONOCYTES % (AUTO) 9 % (2-9); NEUTROPHILS # (AUTO) 3.16 x10^3/uL (1.8-6.8); NEUTROPHILS % (AUTO) 47 % (42-75); PLATELET COUNT 244 x10^3/uL (130-400); RED BLOOD COUNT 4.68 x10^6/uL (4.38-5.82)
[2017-10-22 05:56] LABS: ANION GAP 5 mmol/L (5-15); CALCIUM 8.7 mg/dL (8.5-10.1); CHLORIDE 102 mmol/L (98-107); CREATININE 0.61 mg/dL (0.7-1.3)
[2017-10-22] MEDS: INSULIN ASPART 100 UNITS/ML, PEN SQ-INSULIN SCH ×3 (07:00→16:00)
[2017-10-22 07:15] VITALS: BP 110/77
[2017-10-22] MEDS: GUAIFENESIN 100 MG/5 ML, 10ML UDC PO SCH (08:49)
[2017-10-22] MEDS: INSULIN DETEMIR 100 UNITS/ML, PEN SQ-INSULIN SCH (08:50)
[2017-10-22] MEDS: ASPIRIN 81 MG TABLET CHEW PO SCH (08:51)
[2017-10-22 13:28] VITALS: BP 106/76
[2017-10-22] MEDS ORDERED: GUAI100L11 PO (15:07)
[2017-10-22] MEDS ORDERED: NICO-487 TD (15:09)
[2017-10-22] MEDS ORDERED: INSU100I28 SQ-INSULIN (15:09)
[2017-10-22] MEDS ORDERED: INSU100I18 SQ-INSULIN (15:09)
== END 2017-10-22 22:48 | DRG 682 ==
LOC: ED 18:15 → SUATTDRO 20:27 → EDIP 20:37 → 4WST 21:38 → CCU 09-27 04:07 → ICU 10-15 16:58 → 5SO 10-18 01:24
PROVIDERS: ADMIT Hospitalist; ATTEND Hospitalist
PROC: 0BH17EZ Insertion of Endotracheal Airway into Trachea, Via Natural or Artificial Opening (ICD-10-PCS; principal; 2017-09-25)
PROC: 5A12012 Performance of Cardiac Output, Single, Manual (ICD-10-PCS; 2017-09-25)
PROC: 0T9B70Z Drainage of Bladder with Drainage Device, Via Natural or Artificial Opening (ICD-10-PCS; 2017-10-17)
PROC: 5A1935Z Respiratory Ventilation, Less than 24 Consecutive Hours (ICD-10-PCS; 2017-10-19)
PROC: 5A1935Z Respiratory Ventilation, Less than 24 Consecutive Hours (ICD-10-PCS; 2017-10-21)
PROC: 5A1935Z Respiratory Ventilation, Less than 24 Consecutive Hours (ICD-10-PCS; 2017-10-22)
DX: N17.0 Acute kidney failure with tubular necrosis (principal); J96.21 Acute and chronic respiratory failure with hypoxia; I46.9 Cardiac arrest, cause unspecified; J69.0 Pneumonitis due to inhalation of food and vomit; E43 Unspecified severe protein-calorie malnutrition; I07.1 Rheumatic tricuspid insufficiency; Z68.42 Body mass index [BMI] 45.0-49.9, adult; I50.31 Acute diastolic (congestive) heart failure; Z99.11 Dependence on respirator [ventilator] status; I47.2 Ventricular tachycardia; E87.0 Hyperosmolality and hypernatremia; E66.2 Morbid (severe) obesity with alveolar hypoventilation; J44.1 Chronic obstructive pulmonary disease with (acute) exacerbation; J98.11 Atelectasis; I27.20 Pulmonary hypertension, unspecified; I11.0 Hypertensive heart disease with heart failure; E78.00 Pure hypercholesterolemia, unspecified; E87.5 Hyperkalemia; F17.200 Nicotine dependence, unspecified, uncomplicated; F41.9 Anxiety disorder, unspecified; G47.00 Insomnia, unspecified; I49.3 Ventricular premature depolarization; R31.0 Gross hematuria; S62.307A Unspecified fracture of fifth metacarpal bone, left hand, initial encounter for closed fracture; T38.0X5A Adverse effect of glucocorticoids and synthetic analogues, initial encounter; Z51.5 Encounter for palliative care; Z82.3 Family history of stroke; Z82.49 Family history of ischemic heart disease and other diseases of the circulatory system; Z91.14 Patient's other noncompliance with medication regimen; Z91.81 History of falling; Z88.0 Allergy status to penicillin
CPT/HCPCS: 29125; 36415; 36600; 71010; 71020; 71250; 71275; 74230; 78452; 80048; 80053; 81001; 82533; 82803; 82805; 82962; 83735; 83880; 84100; 84478; 84484; 85014; 85018; 85025; 85520; 85610; 87040; 87070; 87081; 87086; 87205; 92950; 93005; 93017; 93306; 93970; 94002; 94003; 94150; 94640; 96365; J0456; J0696; J1100; J1644; J1650; J1815; J1940; J2250; J2704; J2785; J3010; J7613; J7620; Q9967; A9502; C9898; J0330; J2920; J2930; J7030; J7050; J7512; S0028

== ENCOUNTER → 2017-11-26 | Outpatient (CLI) | payer OTHER ==
[~2017-11-26] MED LIST: ALBU1.25 NEB; ASPI-515 PO; ATOR10TA9 PO; GUAI100L11 PO; INSU100I18 SQ-INSULIN; INSU100I28 SQ-INSULIN; NICO-487 TD; OMNIPAQUE 350 MG/ML, 150 ML BOTTLE ONE; VALS40TA2 PO; ZOLP-413 PO
== END | disposition home or self-care (01) ==
LOC: CFH 13:11
PROVIDERS: ATTEND Urology
DX: N28.1 Cyst of kidney, acquired (principal)
CPT/HCPCS: 74178; Q9967